=== PATIENT | male | born 1965 | race Caucasian/White ===

== ENCOUNTER 2016-12-14 13:39 | Emergency (ER) ==
[2016-12-14] MEDS ORDERED: BOOSTRIX VACCINE IM ONE (14:06)
[2016-12-14] MEDS ORDERED: XYLOCAINE-MPF 1% INJ ONE (14:07)
--- NOTE | 2016-12-14 14:13 | PROVIDER DOCUMENTATION ---
HPI-Musculoskeletal Pain/Inj - GENERAL Chief Complaint: Extremity Injury Stated Complaint: thumb injury Time Seen by Provider: 12/14/16 14:02 Source: patient - HX OF PRESENT ILLNESS-MUSKULOSKELTAL Nature of Presenting Problem: 51 y/o M c/o R thumb pain x 1 hour. Pt states was polishing a floor at work when he caught his thumb between the machine and a pillar. States laceration to medial aspect or R thumb. States pain is 5/10. Denies any numbness/ tingling to the area. No other sxs. Unsure of last tetanus. Review of Systems - Adult - REVIEW OF SYSTEMS - ADULT Constitutional: reports: no symptoms reported. denies: chills, fever Eyes: reports: no symptoms reported. denies: blurred vision, double vision Ears, Nose, Mouth & Throat: reports: no symptoms reported. denies: ear pain, nose pain Cardiovascular: reports: no symptoms reported. denies: chest pain, palpitations Respiratory: reports: no symptoms reported. denies: dyspnea on exertion, shortness of breath Gastrointestinal: reports: no symptoms reported. denies: abdominal pain, nausea , vomiting Genitourinary: reports: no symptoms reported. denies: dysuria, frequency Musculoskeletal: reports: no symptoms reported. denies: joint pain, joint swelling Integumentary: reports: see HPI, other. denies: nail changes, rash Neurological: reports: no symptoms reported. denies: numbness, paresthesia Psychiatric: reports: no symptoms reported Endocrine: reports: no symptoms reported. denies: cold intolerance, heat intolerance Hematologic/Lymphatic: reports: no symptoms reported. denies: easy bruising, prolonged bleeding Allergic/Immunologic: reports: no symptoms reported All Other Systems: Reviewed and Negative Past History - Adult - PAST MEDICAL HISTORY-ADULT Review of Records: reports: Nursing Assessment Review, Medications Reviewed - SOCIAL HISTORY Substance Use: none/never Physical Exam-Injury Related - Physical Exam-Injury Related Initial Vital Signs Reviewed: Yes General Appearance: alert, mild distress Procedures - LACERATION/WOUND REPAIR/FB Right Medial Finger Wound Location: Other: lateral aspect of R thumb Wound Length: 3 cm Wound's Depth, Shape: linear Wound Explored/Foreign Body: no foreign body found Irrigated with Saline?: No Prepped with: Chlorhexidine Anesthetic: 1%, Lidocaine/Xylocaine Volume of Anesthetic (ml's): 5 (MC block) Wound Repaired with: Sutures Suture Size/Type: 4.0, Non-Absorbable, Nylon Number of Sutures: 6 Layer Closure?: No Sterile Dressing Applied?: Yes Splint Applied?: No Sling Applied?: No Post Procedure Neurovascular Exam: Intact Procedure Comment: Pt tolerated well Departure - Departure Time of Disposition Order: 15:07 DIAGNOSIS: Laceration Disposition: HOME 01 Certified Medical Emergency: Emergent Condition: Stable Additional Instructions: Take medications as directed. Keep wound clean and dry. Follow up in 10-14 days for suture removal. ED Follow Up Instructions: You have been treated by a care provider in the Emergency Department. These instructions are being provided to you so you can have an understanding of how to care for yourself upon discharge. Upon discharge from the Emergency Department, you are responsible for making arrangements for follow-up care by a physician of your choice. Take all prescribed medications as directed. Return to the Emergency Department immediately for any new or worsening symptoms. You may call the Physician Referral phone number at [phone] to obtain a list of Physicians who are taking new patients. Prescriptions: Sulfamethoxazole/Trimethoprim [Bactrim Ds Tablet] 1 each PO BID #14 tablet Tramadol [Ultram] 50 mg PO Q8HR #10 tablet Referrals: None,PCP [Primary Care Provider] - Attestation - Physician/ LAYLA Attestation Patient care was provided by Advanced Practice Provider:: Yes Advanced Practice Provider:: Leigh Ng Advanced Practice Provider documentation review:: The Mid-level provider documentation, treatment plan and medical decision making was reviewed by the physician who agrees with all treatment and medical decision making by the MLP.
[2016-12-14 15:51] VITALS: BP 174/81
--- NOTE | 2016-12-14 17:11 | Diag Imaging Result Document ---
PROCEDURE NAME: FINGER(S)-RIGHT - 12/14/2016 RIGHT THUMB 3 VIEWS: FINDINGS: There is osteophyte formation in the interphalangeal joint. There is no evidence of fracture or dislocation. IMPRESSION: Osteoarthritis.
== END 2016-12-14 15:55 | disposition home or self-care (01) ==
LOC: ED 13:39
DX: S61.011A Laceration without foreign body of right thumb without damage to nail, initial encounter (principal); M79.644 Pain in right finger(s); W31.9XXA Contact with unspecified machinery, initial encounter; Z23 Encounter for immunization
CPT/HCPCS: 73140; 90715